=== PATIENT | female | born 1955 | race Caucasian/White ===

== ENCOUNTER 2022-05-19 15:09 | Observation (INO) | payer OTHER ==
[2022-05-19 15:49] LABS: Absolute Lymphocytes (CBC) 1.2 K/uL (0.7-4.9); Hematocrit 45.9 % (36.0-45.0); Lymphocytes % 14.4 % (15.3-44.8); MCV 106.8 fL (80-100); MPV 8.9 fL (7.6-11.3)
--- NOTE | 2022-05-19 15:53 | RAD REPORT ---
EXAM DESCRIPTION: Alysha Single View05/19/2022 3:24 pm CLINICAL HISTORY: Chest pain COMPARISON: 2016 FINDINGS: The lungs appear clear of acute infiltrate. The heart is normal size IMPRESSION: No acute abnormalities displayed
[2022-05-19 16:04] LABS: SARS-CoV-2 Antigen Rapid Res Negative (Negative)
[2022-05-19 16:16] LABS: Albumin 3.3 g/dL (3.4-5.0); Bilirubin Direct 0.5 mg/dL (0-0.2); Bilirubin Total 2.2 mg/dL (0.2-1.0); Protein, Total 7.3 g/dL (6.4-8.2); Troponin High Sensitivity 10.9 pg/mL (<58.9)
[2022-05-19 16:18] LABS: Magnesium 1.5 mg/dL (1.6-2.4); Potassium 3.3 mmol/L (3.5-5.1)
[2022-05-19 16:37] LABS: Blood Morphology Comment NOTED (NOT SEEN); Platelet Estimate ADEQ; White Blood Cell Scan OK (OK)
[2022-05-19 16:38] LABS: Macrocytosis 1+
--- NOTE | 2022-05-19 16:50 | ER ---
Nurse's Notes [facility] Name: Malia Lerner Age: 66 yrs Sex: Female : 1955 Arrival Date: 05/19/2022 Time: 15:11 Bed 7 Private MD: Diagnosis: Chest pain, unspecified;Hypokalemia;Hypomagnesemia Presentation: 05/19 15:21 Chief complaint: Patient states: Sudden onset of stabbing sub-sternal CP that began kb3 late Friday night while at rest with associated N/V, dizziness. Reports pain is intermittent, currently 2/10 after receiving ASA 325mg, nitro SL x1 and metoprolol 5mg IVP from EMS. Pain 9/10 at worst. Coronavirus screen: Vaccine status: Patient reports receiving the 2nd dose of the covid vaccine. Client denies travel out of the [place] in the last 14 days. Ebola Screen: Patient negative for fever greater than or equal to 101.5 degrees Fahrenheit, and additional compatible Ebola Virus Disease symptoms Patient denies exposure to infectious person. Patient denies travel to an Ebola-affected area in the 21 days before illness onset. Initial Sepsis Screen: Does the patient meet any 2 criteria? No. Patient's initial sepsis screen is negative. Does the patient have a suspected source of infection? No. Patient's initial sepsis screen is negative. Risk Assessment: Do you want to hurt yourself or someone else? Patient reports no desire to harm self or others. Onset of symptoms was May 18, 2022. 15:21 Method Of Arrival: EMS: [facility] kb3 15:21 Acuity: [place] 2 kb3 Triage Assessment: 15:26 General: Appears in no apparent distress. Behavior is calm, cooperative. Pain: kb3 Complains of pain in xiphoid area and mid-sternal area Pain does not radiate. Pain currently is 2 out of 10 on a pain scale. at worst was 9 out of 10 on a pain scale. Quality of pain is described as sharp, stabbing, Pain began 2-3 days ago. Is intermittent, Also complains of nausea, sleeplessness, labile emotions, dizziness. Cardiovascular: Reports chest pain, lightheadedness, nausea, vomiting, Denies diaphoresis, palpitations, Heart tones present Capillary refill < 3 seconds Patient's skin is warm and dry. Pulses are 2+ in right radial artery and left radial artery Rhythm is sinus rhythm. Respiratory: Airway is patent Breath sounds are clear bilaterally. Historical: - Allergies: 15:26 Hydrocodone-Acetaminophen; kb3 15:26 meperidine; kb3 15:26 Morphine; kb3 15:26 PENICILLINS; kb3 15:26 NSAIDS; kb3 - Home Meds: 15:26 omeprazole 20 mg Oral cpDR [Active]; folic acid 1 mg Oral tab 1 tab once daily [Active];kb3 - PMHx: 15:26 Pancreatitis; skin cancer; GERD; kb3 - PSHx: 15:26 Cholecystectomy; kb3 - Immunization history:: Adult Immunizations up to date, Client reports receiving the 2nd dose of the Covid vaccine, Last tetanus immunization: up to date. - Social history:: Smoking status: Patient denies any tobacco usage or history of. Screenin:30 [facility] ED Fall Risk Assessment (Adult) History of falling in the last 3 months, kb3 including since admission No falls in past 3 months (0 pts) Confusion or Disorientation No (0 pts) Intoxicated or Sedated No (0 pts) Impaired Gait No (0 pts) Mobility Assist Device Used No (0 pt) Altered Elimination No (0 pt) Score/Fall Risk Level 0 - 2 = Low Risk Oriented to surroundings, Maintained a safe environment, Educated pt \T\ family on fall prevention, incl call for assistance when getting out of bed, Assessed \T\ reinforced patient's understanding of fall precautions, Provided non-skid footwear, Hourly rounding (assess needs \T\ fall precautionary measures) done, Used ambulatory aids as needed (educated on \T\ assisted with), Used gait belt as appropriate. Abuse screen: Denies threats or abuse. Denies injuries from another. Nutritional screening: No deficits noted. Tuberculosis screening: No symptoms or risk factors identified. Assessment: 15:30 General: see triage note. kb3 16:30 General: Pt reports that she drinks 3 glasses of wine every other day. notified. kb3 17:00 Reassessment: Patient appears in no apparent distress at this time. No changes from kb3 previously documented assessment. General: Pt resting comfortably. 19:12 Reassessment: Patient appears in no apparent distress at this time. Patient and/or kl family updated on plan of care and expected duration. Pain level reassessed. Patient is alert, oriented x 3, equal unlabored respirations, skin warm/dry/pink. Patient states feeling better. Patient states symptoms have improved. Vital Signs: 15:08 BP 169 / 95; Pulse 79; Resp 18; Pulse Ox 100% ; kb3 15:21 BP 169 / 95; Pulse 75; Resp 20; Temp 98.5; Pulse Ox 100% ; Weight 54.88 kg; Height 5 kb3 ft. 4 in. (162.56 cm); Pain 2/10; 15:30 BP 181 / 106; Pulse 78; Resp 16; Pulse Ox 100% ; kb3 16:00 BP 174 / 103; Pulse 80; Resp 18; Pulse Ox 100% ; kb3 16:30 BP 197 / 105; Pulse 81; Resp 16; Pulse Ox 100% ; kb3 17:00 BP 176 / 92; Pulse 72; Resp 20; Pulse Ox 100% ; kb3 18:00 BP 147 / 87; Pulse 83; Resp 20; Pulse Ox 97% ; kb3 18:30 BP 158 / 85; Pulse 76; Resp 20; Pulse Ox 98% ; kb3 19:13 BP 155 / 89; Pulse 81; Resp 20; Pulse Ox 100% on R/A; kl 15:21 Body Mass Index 20.77 (54.88 kg, 162.56 cm) kb3 ED Course: 15:11 Patient arrived in ED. eb 15:14 Howie Johnson MD is Attending Physician. jeremy 15:20 Naya Bell, RN is Primary Nurse. kb3 15:25 XRAY Chest (1 view) In Process Unspecified. EDMS 15:26 Triage completed. kb3 15:26 Arm band placed on right wrist. 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 EKG completed in triage. Results shown to MD. 15:30 Patient has correct armband on for positive identification. Placed in gown. Bed in low kb3 position. Side rails up X2. Warm blanket given. 15:31 No provider procedures requiring assistance completed. Maintain EMS IV. Dressing kb3 intact. Good blood return noted. Site clean \T\ dry. Gauge \T\ site: 20G L FA. 15:39 EKG done, by ED staff, reviewed by Howie Johnson MD. zm 16:49 Yury Johns MD is Hospitalizing Provider. 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): Aspirin Chewable Tablet 81 mg PO once kb3 17:42 Drug: Thiamine 100 mg Route: IV; Rate: per protocol; Site: left forearm; kb3 18:52 Follow up: Response: No adverse reaction; IV Status: Completed infusion; IV Intake: kb3 100ml 17:42 Drug: Ativan (LORazepam) 1 mg Route: IVP; Site: left forearm; kb3 18:51 Follow up: Response: No adverse reaction; Anxiety decreased kb3 17:42 Drug: Banana Bag - (NS 0.9% 1000 ml, foLIC Acid 1 mg, Thiamine 100 mg, Multivitamin 1 kb3 amp) Route: IV; Rate: 125 ml/hr; Site: left forearm; 17:42 Drug: Potassium Effervescent Tablet 50 mEq Route: PO; kb3 18:51 Follow up: Response: No adverse reaction kb3 17:42 Drug: Lovenox (enoxaparin) 1 mg/kg Route: Sub-Q; Site: left lower abdomen; kb3 18:51 Follow up: Response: No adverse reaction kb3 17:42 Drug: Lisinopril 10 mg Route: PO; kb3 18:51 Follow up: Response: No adverse reaction kb3 17:43 Drug: Lopressor (metoprolol TARTRATE) 50 mg Route: PO; kb3 18:52 Follow up: Response: No adverse reaction kb3 17:43 Drug: Magnesium Sulfate 2 grams Route: IVPB; Infused Over: 1 hrs; Site: left forearm; kb3 18:52 Follow up: Response: No adverse reaction; IV Status: Completed infusion; IV Intake: kb3 100ml 17:43 Drug: Pepcid (famotidine) 20 mg Route: IVP; Site: left forearm; kb3 Medication: 15:30 VIS not applicable for this client. kb3 Intake: 18:52 IV: 100ml; Total: 100ml. kb3 18:52 IV: 100ml; Total: 200ml. kb3 Outcome: 16:49 Decision to Hospitalize by Provider. jeremy 20:01 Admitted to Med/surg accompanied by tech, room 203. kl 20:01 Condition: improved 20:01 Discharge instructions given to patient, Instructed on the need for admit, Demonstrated understanding of instructions. 20:17 Patient left the ED. kl Signatures: Dispatcher [employer] Pat Gallo RN RN kl Anderson, Corey, MD MD cha Botello, Elizabeth eb Martinez, Zaina zm Bradberry, Kelly, RN RN kb3 Corrections: (The following items were deleted from the chart) 15:28 15:26 Home Meds: amytripoline; kb3 kb3 15:28 15:26 Home Meds: Fish Oil Oral; kb3 kb3 15:28 15:26 Home Meds: Folic Acid Oral; kb3 kb3 15:28 15:26 Home Meds: [id number] Oral; kb3 kb3 15:28 15:26 Home Meds: lisinopril 10 mg Oral tab; kb3 kb3
--- NOTE | 2022-05-19 16:50 | EDPHYS ---
Physician Documentation [facility] Name: Malia Lerner Age: 66 yrs Sex: Female : 1955 Arrival Date: 05/19/2022 Time: 15:11 Bed 7 Private MD: ED Physician Howie Johnson HPI: 05/19 16:40 This 66 yrs old Female presents to ER via EMS with complaints of chest pain, jeremy stress. Historical: - Allergies: 15:26 Hydrocodone-Acetaminophen; kb3 15:26 meperidine; kb3 15:26 Morphine; kb3 15:26 PENICILLINS; kb3 15:26 NSAIDS; kb3 - Home Meds: 15:26 omeprazole 20 mg Oral cpDR [Active]; folic acid 1 mg Oral tab 1 tab once daily [Active];kb3 - PMHx: 15:26 Pancreatitis; skin cancer; GERD; kb3 - PSHx: 15:26 Cholecystectomy; kb3 - Immunization history:: Adult Immunizations up to date, Client reports receiving the 2nd dose of the Covid vaccine, Last tetanus immunization: up to date. - Social history:: Smoking status: Patient denies any tobacco usage or history of. ROS: 16:46 Constitutional: Negative for fever, chills, and weight loss, Eyes: Negative for injury, jeremy pain, redness, and discharge, ENT: Negative for injury, pain, and discharge, Neck: Negative for injury, pain, and swelling, Respiratory: Negative for shortness of breath, cough, wheezing, and pleuritic chest pain, Abdomen/GI: Negative for abdominal pain, nausea, vomiting, diarrhea, and constipation, Back: Negative for injury and pain, : Negative for injury, bleeding, discharge, and swelling, MS/Extremity: Negative for injury and deformity, Skin: Negative for injury, rash, and discoloration, Neuro: Negative for headache, weakness, numbness, tingling, and seizure, Psych: Negative for depression, anxiety, suicide ideation, homicidal ideation, and hallucinations, Allergy/Immunology: Negative for hives, rash, and allergies, Endocrine: Negative for neck swelling, polydipsia, polyuria, polyphagia, and marked weight changes, Hematologic/Lymphatic: Negative for swollen nodes, abnormal bleeding, and unusual bruising. 16:46 Cardiovascular: Positive for chest pain, of the chest. 16:46 Respiratory: Negative for cough, dyspnea on exertion, hemoptysis, orthopnea, pleurisy, shortness of breath. Exam: 16:46 Constitutional: This is a well developed, well nourished patient who is awake, alert, jeremy and in no acute distress. Head/Face: Normocephalic, atraumatic. Eyes: Pupils equal round and reactive to light, extra-ocular motions intact. Lids and lashes normal. Conjunctiva and sclera are non-icteric and not injected. Cornea within normal limits. Periorbital areas with no swelling, redness, or edema. ENT: Nares patent. No nasal discharge, no septal abnormalities noted. Tympanic membranes are normal and external auditory canals are clear. Oropharynx with no redness, swelling, or masses, exudates, or evidence of obstruction, uvula midline. Mucous membranes moist. Neck: Trachea midline, no thyromegaly or masses palpated, and no cervical lymphadenopathy. Supple, full range of motion without nuchal rigidity, or vertebral point tenderness. No Meningismus. Chest/axilla: Normal chest wall appearance and motion. Nontender with no deformity. No lesions are appreciated. Cardiovascular: Regular rate and rhythm with a normal S1 and S2. No gallops, murmurs, or rubs. Normal PMI, no JVD. No pulse deficits. Respiratory: Lungs have equal breath sounds bilaterally, clear to auscultation and percussion. No rales, rhonchi or wheezes noted. No increased work of breathing, no retractions or nasal flaring. Abdomen/GI: Soft, non-tender, with normal bowel sounds. No distension or tympany. No guarding or rebound. No evidence of tenderness throughout. Back: No spinal tenderness. No costovertebral tenderness. Full range of motion. Female : Normal external genitalia. Skin: Warm, dry with normal turgor. Normal color with no rashes, no lesions, and no evidence of cellulitis. MS/ Extremity: Pulses equal, no cyanosis. Neurovascular intact. Full, normal range of motion. Neuro: Awake and alert, GCS 15, oriented to person, place, time, and situation. Cranial nerves II-XII grossly intact. Motor strength 5/5 in all extremities. Sensory grossly intact. Cerebellar exam normal. Normal gait. Psych: Awake, alert, with orientation to person, place and time. Behavior, mood, and affect are within normal limits. 16:46 ECG was reviewed by the Attending Physician. Vital Signs: 15:08 BP 169 / 95; Pulse 79; Resp 18; Pulse Ox 100% ; kb3 15:21 BP 169 / 95; Pulse 75; Resp 20; Temp 98.5; Pulse Ox 100% ; Weight 54.88 kg; Height 5 kb3 ft. 4 in. (162.56 cm); Pain 2/10; 15:30 BP 181 / 106; Pulse 78; Resp 16; Pulse Ox 100% ; kb3 16:00 BP 174 / 103; Pulse 80; Resp 18; Pulse Ox 100% ; kb3 16:30 BP 197 / 105; Pulse 81; Resp 16; Pulse Ox 100% ; kb3 17:00 BP 176 / 92; Pulse 72; Resp 20; Pulse Ox 100% ; kb3 18:00 BP 147 / 87; Pulse 83; Resp 20; Pulse Ox 97% ; kb3 18:30 BP 158 / 85; Pulse 76; Resp 20; Pulse Ox 98% ; kb3 19:13 BP 155 / 89; Pulse 81; Resp 20; Pulse Ox 100% on R/A; kl 15:21 Body Mass Index 20.77 (54.88 kg, 162.56 cm) kb3 MDM: 15:14 Patient medically screened. jeremy 16:50 HEART Score: History: Moderately Suspicious (1), ECG: Non specific repolarization jeremy disturbance / LBTB / PM (1), Age: > or = 65 years (2), Risk Factors: 1 or 2 risk factors (1), [Hypertension] [+ Family HX] Troponin: < or = 1 x Normal Limit (0). The patient was given aspirin in the Emergency Department. AMA Risk Score: 1 - patient's age is greater or equal to 65 years, 1 - ASA use in past 7 days, 1 - Recent [<24hrs] Severe Angina. Data reviewed: vital signs, nurses notes, lab test result(s), cardiac enzymes, CBC, electrolytes, hepatic panel. Consideration of Admission/Observation Patient was admitted/placed on observation. Escalation of care including admission/observation considered. Management of patient was discussed with the following: Hospitalist: dr archuleta. I considered the following discharge prescriptions or medication management in the emergency department Medications were administered in the Emergency Department. See 15:15 Order name: Basic Metabolic Panel; Complete Time: 16:33 05/19 15:15 Order name: CBC with Diff; Complete Time: 16:48 05/19 15:15 Order name: LFT's; Complete Time: 16:33 05/19 15:15 Order name: Magnesium; Complete Time: 16:33 05/19 15:15 Order name: NT PRO-BNP; Complete Time: 16:33 05/19 15:15 Order name: PT-INR; Complete Time: 16:33 05/19 15:15 Order name: Troponin HS; Complete Time: 16:33 05/19 15:15 Order name: Lipase; Complete Time: 16:33 05/19 15:15 Order name: SARS RAPID; Complete Time: 16:33 05/19 16:38 Order name: CBC Smear Scan; Complete Time: 16:48 EDIL 05/19 17:39 Order name: Comprehensive Metabolic Panel EDMS 05/19 17:39 Order name: CBC with Automated Diff EDMS 05/19 17:39 Order name: Troponin High Sensitivity EDMS 05/19 17:39 Order name: Troponin High Sensitivity EDMS 05/19 15:15 Order name: XRAY Chest (1 view); Complete Time: 16:33 05/19 17:39 Order name: Troponin High Sensitivity EDMS 05/19 17:39 Order name: Troponin High Sensitivity EDMS 05/19 17:39 Order name: Troponin High Sensitivity EDMS 05/19 20:09 Order name: Retic Count EDMS 05/19 20:12 Order name: Alcohol Serum/Plasma EDMS 05/19 15:15 Order name: EKG; Complete Time: 15:16 05/19 15:15 Order name: Cardiac monitoring; Complete Time: 15:32 05/19 15:15 Order name: EKG - Nurse/Tech; Complete Time: 15:32 05/19 15:15 Order name: IV Saline Lock; Complete Time: 15:32 05/19 15:15 Order name: Labs collected and sent; Complete Time: 15:32 05/19 15:15 Order name: O2 Per Protocol; Complete Time: 15:32 05/19 15:15 Order name: O2 Sat Monitoring; Complete Time: 15:32 05/19 17:39 Order name: Heart Healthy EDMS EC:46 Rate is 76 beats/min. Rhythm is regular. QRS [place] is Normal. LA interval is normal. QRS jeremy interval is normal. QT interval is normal. No Q waves. T waves are Normal. No ST changes noted. Clinical impression: NSR w/ Non-specific ST/T Changes and No evidence of ischemia. Interpreted by me. Reviewed by me. 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): Aspirin Chewable Tablet 81 mg PO once kb3 17:42 Drug: Thiamine 100 mg Route: IV; Rate: per protocol; Site: left forearm; kb3 18:52 Follow up: Response: No adverse reaction; IV Status: Completed infusion; IV Intake: kb3 100ml 17:42 Drug: Ativan (LORazepam) 1 mg Route: IVP; Site: left forearm; kb3 18:51 Follow up: Response: No adverse reaction; Anxiety decreased kb3 17:42 Drug: Banana Bag - (NS 0.9% 1000 ml, foLIC Acid 1 mg, Thiamine 100 mg, Multivitamin 1 kb3 amp) Route: IV; Rate: 125 ml/hr; Site: left forearm; 17:42 Drug: Potassium Effervescent Tablet 50 mEq Route: PO; kb3 18:51 Follow up: Response: No adverse reaction kb3 17:42 Drug: Lovenox (enoxaparin) 1 mg/kg Route: Sub-Q; Site: left lower abdomen; kb3 18:51 Follow up: Response: No adverse reaction kb3 17:42 Drug: Lisinopril 10 mg Route: PO; kb3 18:51 Follow up: Response: No adverse reaction kb3 17:43 Drug: Lopressor (metoprolol TARTRATE) 50 mg Route: PO; kb3 18:52 Follow up: Response: No adverse reaction kb3 17:43 Drug: Magnesium Sulfate 2 grams Route: IVPB; Infused Over: 1 hrs; Site: left forearm; kb3 18:52 Follow up: Response: No adverse reaction; IV Status: Completed infusion; IV Intake: kb3 100ml 17:43 Drug: Pepcid (famotidine) 20 mg Route: IVP; Site: left forearm; kb3 Disposition Summary: 05/19/22 16:49 Hospitalization Ordered Hospitalization Status: Observation jeremy Provider: Nat, Yury jeremy Location: Telemetry/MedSurg (observation) jeremy Condition: Fair jeremy Problem: new jeremy Symptoms: have improved jeremy Bed/Room Type: Standard jeremy Room Assignment: 203(05/19/22 18:33) dw Diagnosis - Chest pain, unspecified jeremy - Hypokalemia jeremy - Hypomagnesemia jeremy Forms: - Medication Reconciliation Form jeremy - SBAR form jeremy Signatures: Dispatcher [employer] EDVanna Dalton RN RN dw Anderson, Corey, MD MD cha Bradberry, Kelly, RN RN kb3 Corrections: (The following items were deleted from the chart) 15:28 15:26 Home Meds: amytripoline; kb3 kb3 15:28 15:26 Home Meds: Fish Oil Oral; kb3 kb3 15:28 15:26 Home Meds: Folic Acid Oral; kb3 kb3 15:28 15:26 Home Meds: [id number] Oral; kb3 kb3 15:28 15:26 Home Meds: lisinopril 10 mg Oral tab; kb3 kb3 18:33 16:49 jeremy dw
[2022-05-19] MEDS ORDERED: LORazepam 2 MG/ML VIAL ONE (17:04)
[2022-05-19] MEDS ORDERED: THIAMINE 200 MG/2 ML INJ ONE (17:04)
[2022-05-19] MEDS ORDERED: lisinopriL 10 MG TAB ONE (17:04)
[2022-05-19] MEDS ORDERED: METOPROLOL TAR 50 MG TAB ONE (17:04)
[2022-05-19] MEDS ORDERED: FAMOTIDINE 20 MG/2 ML VIAL IV ONE (17:05)
[2022-05-19] MEDS ORDERED: POTASSIUM 25 MEQ EFFERV TAB ONE (17:05)
[2022-05-19] MEDS ORDERED: NA CHLORIDE 0.9% 1,000 ML ONE (17:05)
[2022-05-19] MEDS ORDERED: MULTIVITAMINS 10 ML VIAL (INJ) IV ONE (17:05)
[2022-05-19] MEDS ORDERED: FOLIC ACID 5 MG/ML VIAL ONE (17:06)
[2022-05-19] MEDS ORDERED: ENOXAPARIN 60 MG/0.6 ML SQ ONE (17:06)
[2022-05-19] MEDS ORDERED: Magnesium Sulfate 2gm IVPB 2 G/50 ML BAG IV ONE (17:06)
[2022-05-19] MEDS ORDERED: NITROGLYCERIN 0.4 MG/TAB SL PRN (17:33)
[2022-05-19] MEDS ORDERED: MORPHINE 2 MG/ML SYR IV PRN (17:33)
[2022-05-19] MEDS: lisinopriL 10 MG TAB PO SCH (17:33)
--- NOTE | 2022-05-19 17:33 | P.HP ---
Certification for Inpatient Patient admitted to: Observation Practitioner: I am a practitioner with admitting privileges, knowledge of patient current condition, hospital course, and medical plan of care. Services: Services provided to patient in accordance with Admission requirements found in Title 42 Section 412.3 of the Code of Federal Regulations Patient History Date of Service: 05/19/22 Reason for admission: Chest pain History of Present Illness: Patient is 66 years of age admitted with acute onset of left-sided precordial chest pain started on Friday she has been under a lot of stress recently described a sharp stabbing left-sided localized chest pain prior history of coronary artery disease other significant medical history apart from a history of hypertension and her blood pressure medications were discontinued never had any history of pain before being landed a lot of stress taking care of her father patient denies any fever chills or shortness of breath Allergies hydrocodone Allergy (Verified 04/13/14 23:31) Rash morphine Allergy (Verified 04/09/14 18:28) Itching/Hives/Rash Penicillins Adverse Reaction (Unknown, Verified 04/09/14 18:20) Hives meperidine HCl [From Demerol] Adverse Reaction (Verified 04/09/14 18:27) Nausea/Vomiting Hydr Allergy (Uncoded 12/09/16 23:51) Unknown Hydrocodone-Aceta Allergy (Uncoded 01/04/16 12:45) Unknown Home Medications: Fish Oil/Borage/Flax/Om3,6,9 1 [[place] 3-6-9 1,200 mg Softgel] 1,200 mg PO DAILY 04/09/14 Folic Acid 0.4 mg PO DAILY 04/09/14 Lipase/Protease/Amylase [Gold Tan 36,000 Unit Capsule] 36,000 units PO WMP 04/09/14 Omeprazole Magnesium [Prilosec Otc] 20 mg PO DAILY 04/09/14 lisinopriL [Prinivil*] 10 mg PO DAILY 04/09/14 Amitriptyline [Elavil*] 50 mg PO BEDTIME 01/02/16 - Past Medical/Surgical History Diabetic: No -: Chronic, recurrent pancreatitis; gastroenterology-Dr. Conway -: Hypertension -: History of skin cancer -: Varicose veins -: Lap Yazmin 2008 -: Pancreatic duct stent Psychosocial/ Personal History: She is currently , has 3 children, she does not work. - Family History Mother -: Hypertension, Cancer Notes: Skin cancer Father -: Diabetes Notes: Borderline - Social History Alcohol use: Yes CD- Drugs: No Caffeine use: No Review of Systems 10-point ROS is otherwise unremarkable Physical Examination - Physical Exam General: Alert, Oriented x3 HEENT: Atraumatic, Other Cardiovascular: No edema, Regular rate/rhythm, Normal S1 S2 Gastrointestinal: Normal bowel sounds, Soft and benign Musculoskeletal: No clubbing, No swelling Integumentary: No rashes, No breakdown - Studies Laboratory Data (last 24 hrs) 05/19/22 15:32: PT 11.0, INR 1.00 05/19/22 15:32: WBC 8.10, Hgb 15.9 H, Hct 45.9 H, Plt Count 217 05/19/22 15:32: Sodium 133 L, Potassium 3.3 L, BUN 12, Creatinine 0.75, Glucose 122 H, Magnesium 1.5 L, Total Bilirubin 2.2 H, AST 77 H, ALT 51, Alkaline Phosphatase 140 H, Lipase 142 Assessment and Plan - Problems (Diagnosis) (1) Chest pain Current Visit: Yes Status: Acute Plan: Patient is 66 years of age with no prior significant medical history apart from history of hypertension mated with left-sided precordial chest pain he localized no prior history of coronary artery disease no diabetes or hypertension been under a lot of stress recently patient has abnormal labs elevated liver function test per natremia hypokalemia blood pressure is also elevated she is not taking any medication will admit to the hospital for observation we will repeat troponin EKG was normal IV fluids Qualifiers: Chest pain type: chest pain on breathing Qualified Code(s): R07.1 - Chest pain on breathing; R07.81 - Pleurodynia - Advance Directives Does patient have a Living Will: No Does patient have a Durable POA for Healthcare: No
[2022-05-19 20:02] LABS: Absolute Lymphocytes (CBC) 1.8 K/uL (0.7-4.9); Hematocrit 43.7 % (36.0-45.0); Lymphocytes % 22.6 % (15.3-44.8); MCV 107.2 fL (80-100); MPV 8.9 fL (7.6-11.3); RBC Red Blood Cell Count 4.07 M/uL (3.86-4.86)
[2022-05-19 20:06] LABS: RBC Red Blood Cell Count 4.1 M/uL (3.86-4.86)
[2022-05-19 20:36] LABS: ALT/SGPT 41 U/L (13-56); AST/SGOT 63 U/L (15-37); Alkaline Phosphatase 117 U/L (45-117); BUN Blood Urea Nitrogen 13 mg/dL (7-18); Bicarbonate 27 mmol/L (21-32); Bilirubin Total 1.6 mg/dL (0.2-1.0); Glomerular Filtration Rate 100 ml/min (=/>90); Glucose Level 99 mg/dL (74-106); Potassium 3.7 mmol/L (3.5-5.1); Protein, Total 6.3 g/dL (6.4-8.2); Sodium Level 135 mmol/L (136-145)
[2022-05-19 21:06] VITALS: BMI 19.6
[2022-05-19 21:29] LABS: Platelet Estimate ADEQ; White Blood Cell Scan OK (OK)
[2022-05-19 21:30] LABS: Blood Morphology Comment NOTED (NOT SEEN); Macrocytosis 1+
[2022-05-19] MEDS ORDERED: ALPRAZOLAM 0.25 MG TABLET PO PRN (23:53)
[2022-05-20 02:33] VITALS: O2SAT 99
[2022-05-20 07:14] LABS: Albumin 2.9 g/dL (3.4-5.0); Bilirubin Total 1.4 mg/dL (0.2-1.0); Potassium 3.7 mmol/L (3.5-5.1)
[2022-05-20 07:57] LABS: Barbiturates NEGATIVE (NEGATIVE); Benzodiazepines NEGATIVE (NEGATIVE); Cocaine NEGATIVE (NEGATIVE); METHAMPHETAM NEGATIVE (NEGATIVE); Methadone NEGATIVE (NEGATIVE); Opiates NEGATIVE (NEGATIVE); Phencyclidine NEGATIVE (NEGATIVE); THC Cannibis NEGATIVE (NEGATIVE)
[2022-05-20] MEDS ORDERED: PNEUMOCOCCAL VACCINE 0.5 ML IMVAC ONE (08:00)
[2022-05-20] MEDS: lisinopriL 10 MG TAB PO SCH (08:14)
[2022-05-20] MEDS ORDERED: ASPIRIN EC 81 MG TAB PO SCH (09:00)
[2022-05-20] MEDS ORDERED: ALPRAZOLAM 0.25 MG TABLET PO PRN (12:00)
--- NOTE | 2022-05-20 15:57 | P.DS ---
Admission Date: 05/19/22 Discharge Date: 05/20/22 Disposition: ROUTINE DISCHARGE Discharge Condition: GOOD Reason for Admission: Chest pain Consultations: 1. Cardiology Hospital Course: DIAGNOSES: # Atypical Chest Pain # Chronic Pancreatitis # Alcohol Use Disorder # Hypomagnesemia # Hypokalemia # Anxiety # Hypertension HOSPITAL COURSE: Ms. Malia Alvarez is a 66 year old female with a past medical history significant for alcohol use disorder, anxiety, and hypertension who was admitted to the [facility] on 05/19/2022 for chest pain. She was admitted to the Medicine service. Upon further evaluation, her EKG revealed normal sinus rhythm without STEMI criteria. Her troponin trend was 10.9 -> 10.4 -> 9.0. A transthoracic echocardiogram was obtained, and per Dr. Brooks, it revealed a normal left ventricular ejection fraction (60-65%), normal wall motion, grade 1 diastolic dysfunction, trace mitral regurgitation, and trace tricuspid regurgitation. Dr. Brooks has cleared her for discharge with a baby aspirin and an outpatient cardiac stress test. Ms. Alvarez endorsed concern that she still did not have an answer to her chest pain. I reviewed the differential diagnoses with her and explained that her symptoms do not appear to represent an acute coronary event. I offered to obtain a CT chest angiogram to exclude pulmonary embolism, although this is lower on the differential given her adequate SpO2 readings, normal heart rate, and lack of respiratory symptoms. However, she declined because she did not want to receive contrast or radiation exposure. This was reasonable given the low likelihood of a pulmonary embolism. I also offered a d-dimer, but she also declined this given that it is not specific, and if positive, would warrant a CT chest angiogram anyways. I explained that should she develop worsening chest pain, shortness of breath, dyspnea, palpitations, or any other symptoms that she finds concerning, she yonatan uld return to the Emergency Department for further evaluation. She verbalized understanding. licensed practical nurse instructor, Chioma Elaine, was present for this conversation. On 05/20/2022, she was seen on rounds and deemed medically stable for discharge. She was discharged with instructions to schedule follow-up appointments with her PCP (Dr. Vazquez) and with Cardiology (Dr. Brooks). She was given the opportunity to ask questions and reported no further questions. Furthermore, all questions were answered to the best of my ability. A copy of this discharge summary will be sent to the above providers to facilitate continuity of care. Today, I personally spent 25 minutes on her case, of which greater than 50% of the time was spent in patient education, counseling, and coordination of care as described above. Vital Signs/Physical Exam: Temp Pulse Resp BP Pulse Ox 97.0 F 75 14 160/87 H 100 05/20/22 12:00 05/20/22 12:00 05/20/22 12:00 05/20/22 12:00 05/20/22 12:00 General: Alert, In no apparent distress, Oriented x3 HEENT: Atraumatic, Mucous membr. moist/pink, EOMI, Sclerae nonicteric Neck: JVD not distended Respiratory: Clear to auscultation bilaterally, Normal air movement Cardiovascular: No edema, Regular rate/rhythm, Normal S1 S2, No gallops, No rubs, No murmurs Gastrointestinal: Normal bowel sounds, Soft and benign, Non-distended, No tenderness, No rebound, No guarding Musculoskeletal: No clubbing Integumentary: No rashes Neurological: Normal speech, Cranial nerves 3-12 intact, Normal affect Laboratory Data at Discharge: WBC 7.80 K/uL (4.3-10.9) 05/19/22 19:36 Hgb 15.1 g/dL (12.0-15.0) H 05/19/22 19:36 Hct 43.7 % (36.0-45.0) 05/19/22 19:36 Plt Count 188 K/uL (152-406) 05/19/22 19:36 PT 11.0 SECONDS (9.5-12.5) 05/19/22 15:32 INR 1.00 05/19/22 15:32 Sodium 135 mmol/L (136-145) L 05/20/22 06:45 Potassium 3.7 mmol/L (3.5-5.1) 05/20/22 06:45 BUN 9 mg/dL (7-18) 05/20/22 06:45 Creatinine 0.46 mg/dL (0.55-1.02) L 05/20/22 06:45 Glucose 88 mg/dL (74-106) 05/20/22 06:45 Magnesium Cancelled 01/16/23 Unknown Total Bilirubin 1.4 mg/dL (0.2-1.0) H 05/20/22 06:45 AST 43 U/L (15-37) H 05/20/22 06:45 ALT 36 U/L (13-56) 05/20/22 06:45 Alkaline Phosphatase 107 U/L (45-117) 05/20/22 06:45 Lipase 142 U/L (73-393) 05/19/22 15:32 Home Medications: Fish Oil/Borage/Flax/Om3,6,9 1 [[place] 3-6-9 1,200 mg Softgel] 1,200 mg PO DAILY 04/09/14 Folic Acid 0.4 mg PO DAILY 04/09/14 Omeprazole Magnesium [Prilosec Otc] 20 mg PO DAILY 04/09/14 lisinopriL [Prinivil*] 10 mg PO DAILY 04/09/14 Aspirin Chewable [Aspirin Chewable*] 81 mg PO DAILY #1 tab.chew 05/20/22 New Medications: Aspirin Chewable [Aspirin Chewable*] 81 mg PO DAILY #1 tab.chew Physician Discharge Instructions: 1. Please call and schedule a follow-up appointment with your PCP (Dr. Vazquez) in 3-5 days 2. Please call and schedule a follow-up appointment with Cardiology (Dr. Brooks) in 5-7 days - He will schedule you for a cardiac stress test at this follow-up appointment Diet: AHA Activity: Ad mynor Followup: Mario Brooks MD [ACTIVE - CAN ADMIT] - Rodriguez Vazquez MD [ACTIVE - CAN ADMIT] - Time spent managing pt's care (in minutes): 25
[2022-05-20 16:16] VITALS: BP 183/88; TEMP 97.7
--- NOTE | 2022-05-20 17:11 | CON ---
Date of Consultation: 05/20/2022 Reason For Consultation: Chest pain. History Of Present Illness: This is a 66-year-old female with a past medical history of chronic panc reatitis, hypertension, presented with sudden onset chest pain, retrosternal, sharp, stabbing like, n ot related to exertion. She was watching TV, kept getting worse. She presented to the emergency lencho m. Denies having any shortness of breath. No nausea, vomiting, or diaphoresis. Pain completely res olved and cardiac enzymes have been negative. Past Medical History: As outlined above in HPI. Medications: Refer to reconciliation sheet for detailed list. Allergies: SHE IS ALLERGIC TO HYDROCODONE, MORPHINE, PENICILLIN, MEPERIDINE. Family History: No premature coronary artery disease or cancer. Social History: She drinks alcohol on a regular basis. Does not smoke or use any drugs. Review of Systems: All systems reviewed and they were negative except what mentioned in HPI. Physical Examination: Vital Signs: Reviewed. Head and Neck: Pupils are equal, reactive to light. Intact eye movements. No JVD. No cervical lym phadenopathy. Neck is supple. Thyroid is not enlarged. Lungs: Clear to auscultation bilaterally. No rhonchi, wheezing, or crackles. No accessory muscle u se. Heart: Regular rate and rhythm. No extra sounds. Abdomen: Soft, nontender. Bowel sounds positive. No organomegaly. No masses or hernia. No rigidi ty or rebound. Extremities: No edema, clubbing, or cyanosis. Intact pulses. Skin: No rash. Neurologic: Alert, awake, oriented x3. No acute focal deficits appreciated. Lymph Nodes: No cervical or axillary lymphadenopathy. Investigations: BUN 9, creatinine 0.46. ALT was 43, AST 36. Troponin x4 sets are negative and the proBNP was slightly elevated at 740. EKG without acute specific abnormalities. Assessment And Recommendations: 1.Chest pain, atypical pain. Cardiac enzymes are negative and echocardiogram was done. She has nor mal ejection fraction, normal wall motion. From Cardiology standpoint, the patient can be released a nd arrange for outpatient stress test. 2.Hypertension. Blood pressure is controlled. Continue home medications. SR/MODL Voice ID: [id number] Report ID: [id number]
--- NOTE | 2022-05-20 17:33 | EKG ---
Test Date: 2022-05-19 Test Time: 15:35:07 Senior Talent Management Consultant: WILMAN MEASUREMENT RESULTS: Intervals: Rate: 76 [place]: 154 QRSD: 82 QT: 424 QTc: 477 [place]: P: 70 [place]: 154 QRS: 63 T: 59 INTERPRETIVE STATEMENTS: Normal sinus rhythm Nonspecific ST abnormality Abnormal ECG Compared to ECG 12/09/2016 19:56:57 Prolonged QT interval no longer present ST (T wave) deviation still present Electronically Signed On 05-20-22 17:31:15 FIGURE SKATER by Mario Brooks
--- NOTE | 2022-05-21 07:14 | ECHO ---
HEIGHT: 5 ft 5 in WEIGHT: 118 lb 0 oz DATE OF STUDY: 05/20/[address]: Corona Storm MD 2-DIMENSIONAL: YES M.MODE: YES DOPPLER: YES COLOR FLOW: YES TDS: PORTABLE: YES DEFINITY: BUBBLE STUDY: DIAGNOSIS: CHEST PAIN CARDIAC HISTORY: CATHERIZATION: SURGERY: PROSTHETIC VALVE: PACEMAKER: MEASUREMENTS (cm) DIASTOLIC (NORMALS) SYSTOLIC (NORMALS) IVSd 0.9 (0.6-1.2) LA Diam 2.4 (1.9-4.0) LVEF 63% LVIDd 4.6 (3.5-5.7) LVIDs 3.0 (2.0-3.5) %FS 34% LVPWd 1.2 (0.6-1.2) Ao Diam 2.7 (2.0-3.7) 2 DIMENSIONAL ASSESSMENT: RIGHT ATRIUM: NORMAL LEFT ATRIUM: NORMAL RIGHT VENTRICLE: NORMAL LEFT VENTRICLE: NORMAL TRICUSPID VALVE: TRACE TRICUSPID REGURGITATION MITRAL VALVE: TRACE MITRAL REGURGITATION PULMONIC VALVE: NORMAL AORTIC VALVE: NORMAL PERICARDIAL EFFUSION: NONE AORTIC ROOT: NORMAL LEFT VENTRICULAR WALL MOTION: NORMAL DOPPLER/COLOR FLOW: SEE BELOW COMMENTS: 1. NORMAL LEFT VENTRICULAR EJECTION FRACTION 60-65% 2. NORMAL WALL MOTION 3. GRADE I DIASTOLIC DYSFUNCTION 4. TRACE MITRAL REGURGITATION/ TRACE TRICUSPID REGURGITATION TECHNOLOGIST: ISAEL OLIVARES
== END 2022-05-20 16:43 | disposition home or self-care (01) ==
LOC: ER 15:09 → ERHOLD 17:34 → 2ND 19:31
PROVIDERS: ADMIT Internal Medicine Sleep Medicine; ATTEND Internal Medicine
DX: R07.89 Other chest pain (principal); I25.10 Atherosclerotic heart disease of native coronary artery without angina pectoris; I10 Essential (primary) hypertension; K86.1 Other chronic pancreatitis; F41.9 Anxiety disorder, unspecified; F10.90 Alcohol use, unspecified, uncomplicated; E83.42 Hypomagnesemia; E87.6 Hypokalemia; Z88.6 Allergy status to analgesic agent; Z88.0 Allergy status to penicillin; Z88.8 Allergy status to other drugs, medicaments and biological substances; Z23 Encounter for immunization
CPT/HCPCS: 96365; 93005; 93306; 85025 ×2; 80048; 36415 ×2; 83735 ×2; 83615; 85610; 85044; 80076; 84484 ×3; 82607; 83690; 80053 ×2; 83880; 80307; 82747; 71045; 96375; 96372; 99285; 87811; J3411; J1650; J3475; J7030; G0378 ×4; G0480 ×2